=== PATIENT | female | born 1950 | race Two or more races ===

== ENCOUNTER 2024-07-02 08:51 | Emergency (ER) | payer MEDICARE ==
[~2024-07-02] VITALS: Ht 165.1 cm; Wt 65.3 kg
[2024-07-02 09:03] VITALS: BP 136/61; TEMP 97.9; O2SAT 99
[2024-07-02] MEDS ORDERED: AMOX-430 PO (09:49)
[2024-07-02] MEDS ORDERED: DOXY100C2 PO (09:49)
[2024-07-02] MEDS ORDERED: ONDA4TAB5 PO (09:49)
== END 2024-07-02 10:01 | disposition home or self-care (01) ==
LOC: ER 09:31
DX: S30.861A Insect bite (nonvenomous) of abdominal wall, initial encounter (principal); L03.116 Cellulitis of left lower limb; R21 Rash and other nonspecific skin eruption; W57.XXXA Bitten or stung by nonvenomous insect and other nonvenomous arthropods, initial encounter; Y93.89 Activity, other specified; Y92.89 Other specified places as the place of occurrence of the external cause; Y99.8 Other external cause status